=== PATIENT | female | born 1950 | race African-American/Black ===

== ENCOUNTER → 2016-07-08 | Outpatient (CLI) | payer MEDICARE, OTHER ==
[~2016-07-08] MED LIST: LORTAB 10-5001 EACH PO; PHENERGAN25 MG PO
[2016-07-08 11:27] LABS: BASOPHIL# 0.1 X10e3 (0-0.3); EOSINOPHIL# 0.3 X10e3 (0-0.7); EOSINOPHIL% 2.9 % (0.0-7.0); HEMATOCRIT 31.4 % (35.0-45.0); LYMPHOCYTE# 2.9 X10e3 (1.0-3.5); LYMPHOCYTE% 32.4 % (17.0-45.0); MEAN CELL VOLUME 87.9 FL (83-96); MEAN CORPUSCULAR HEMOGLOBIN 28.1 PG (28-34); MEAN PLATELET VOLUME 7.5 FL (6.5-11.5); MONOCYTE# 0.6 X10e3 (0-1.0); MONOCYTE% 6.1 % (3.0-12.0); NEUTROPHIL# 5.2 X10e3 (1.5-7.1); NEUTROPHIL% 57.6 % (40-75); PLATELET COUNT 380 X10e3 (140-420); RED BLOOD COUNT 3.57 X10e (3.90-5.30); RED CELL DISTRIBUTION WIDTH 15.1 % (11.0-15.5); WHITE BLOOD COUNT 9.1 X10e3 (4.0-10.5)
[2016-07-08 11:29] LABS: URINE APPEARANCE CLEAR; URINE BILIRUBIN NEG (NEG); URINE BLOOD NEG (NEG); URINE COLOR YELLOW; URINE GLUCOSE NEG (NEG); URINE KETONE NEG (NEG); URINE LEUKOCYTE ESTERASE TRACE (NEG); URINE NITRATE NEG (NEG); URINE PH 5.5 (5-8); URINE PROTEIN 3+ (NEG); URINE SPECIFIC GRAVITY 1.012 (1.003-1.035); URINE UROBILINOGEN 0.2 MG/DL (NEG)
[2016-07-08 11:30] LABS: DIFF IND NO
[2016-07-08 11:33] LABS: URBCS1 AUWI 0-2 /[HPF] (0-2); URINE BACTERIA AUWI NEG (NEGATIVE); URINE SQUAMOUS EPITHELIAL CELL OCC /[HPF]
[2016-07-08 12:15] LABS: CALCIUM SERUM 9.7 mg/dL (8.4-10.2); GLOM FILT RATE Estimated 25.6 mL/min (>60); PHOSPHOROUS 4.4 mg/dL (2.5-4.6); POTASSIUM 5.3 mmol/L (3.5-5.1)
[2016-07-08 12:55] LABS: CREATININE,RANDOM URINE 83 mg/dL
[2016-07-08 12:57] LABS: TOTAL PROTEIN,RANDOM URINE 290 mg/dl (<10)
[2016-07-14 07:21] LABS: CALCIUM (PTHINTACT) 9.6 mg/dL (8.6-10.4)
== END | disposition home or self-care (01) ==
LOC: CLAB 10:19
PROVIDERS: Internal Medicine Nephrology
DX: N18.3 Chronic kidney disease, stage 3 (moderate) (principal); E55.9 Vitamin D deficiency, unspecified
CPT/HCPCS: 36415; 80048; 81003; 82306; 82310; 82570; 82652; 83970; 84100; 84156; 85025

== ENCOUNTER → 2016-09-28 | Outpatient (CLI) | payer MEDICARE, OTHER ==
[2016-09-28 11:27] LABS: BASOPHIL# 0.1 X10e3 (0-0.3); EOSINOPHIL# 0.3 X10e3 (0-0.7); EOSINOPHIL% 3.1 % (0.0-7.0); HEMATOCRIT 30.8 % (35.0-45.0); HEMOGLOBIN 9.9 gm/dL (12.0-16.0); LYMPHOCYTE# 3.5 X10e3 (1.0-3.5); LYMPHOCYTE% 36.3 % (17.0-45.0); MEAN CELL VOLUME 86.2 FL (83-96); MEAN CORPUSCULAR HEMOGLOBIN 27.7 PG (28-34); MEAN CORPUSCULAR HGB CONC 32.1 g/dL (30-36); MEAN PLATELET VOLUME 7.2 FL (6.5-11.5); MONOCYTE# 0.6 X10e3 (0-1.0); MONOCYTE% 6.4 % (3.0-12.0); NEUTROPHIL# 5.2 X10e3 (1.5-7.1); NEUTROPHIL% 53.2 % (40-75); PLATELET COUNT 401 X10e3 (140-420); RED BLOOD COUNT 3.58 X10e (3.90-5.30); RED CELL DISTRIBUTION WIDTH 15.4 % (11.0-15.5); WHITE BLOOD COUNT 9.7 X10e3 (4.0-10.5)
[2016-09-28 11:34] LABS: DIFF IND NO
[2016-09-28 12:39] LABS: BUN/CREATININE RATIO 13.68; CALCIUM SERUM 9.2 mg/dL (8.4-10.2); CREATININE SERUM 1.9 mg/dL (0.6-1.4); GLOM FILT RATE Estimated 31.5 mL/min (>60); POTASSIUM 3.7 mmol/L (3.5-5.1)
[2016-10-01 00:30] LABS: CALCIUM (PTHINTACT) 9.3 mg/dL (8.6-10.4)
== END | disposition home or self-care (01) ==
LOC: CLAB 10:25
PROVIDERS: Internal Medicine Nephrology
DX: N18.3 Chronic kidney disease, stage 3 (moderate) (principal); E55.9 Vitamin D deficiency, unspecified
CPT/HCPCS: 36415; 80048; 82306; 82310; 82652; 83970; 85025